=== PATIENT | male | born 2000 | race American Indian/Alaskan Native ===

== ENCOUNTER 2020-10-17 18:47 | Emergency (ER) | payer MEDICAID | END 2020-10-17 21:22 | disposition left against medical advice (07) | LOC: ED 18:47 | DX: Z00.8 Encounter for other general examination (principal); Z53.21 Procedure and treatment not carried out due to patient leaving prior to being seen by health care provider ==

== ENCOUNTER 2020-12-28 09:46 | Emergency (ER) | payer MEDICAID ==
[2020-12-28 10:14] VITALS: BP 120/79
--- NOTE | 2020-12-28 12:03 | Emergency Department Report ---
Chief Complaint: Urogenital-Male Stated Complaint: PAINFUL URINATION Time Seen by Provider: 12/28/20 12:01 - HPI History of Present Illness: Patient is a 20-year-old male presents emergency room complaints of dysuria that began a couple days ago. Patient states that he typically uses protection during his sexual encounters. States that this time he did not use protection. He began feeling the symptoms a few days after the encounter. He denies any penile discharge, hematuria, pain or swelling the testicles, abdominal pain, back pain, urinary retention, fever, nausea, vomiting, diarrhea. Patient denies any past medical history. No allergies to medications. Vitals are normal On exam: Non toxic appearing, no acute distress atraumatic, normocephalic normal appearance of the eyes, EOMI, no periorbital edema or ecchymosis moist mucus membranes No respiratory distress, no accessory muscle use A&O x4, normal gait Patient is presenting with signs likely consistent with STD given that he is having dysuria after a unprotected sexual encounter Patient denies any penile discharge, hematuria, pain or swelling the testicles, abdominal pain, back pain, urinary retention, fever, nausea, vomiting, diarrhea This hospital facility does not test or treat for uncomplicated male STDs Patient given the appropriate resources Discuss strict return precautions Medical screen examination performed and there is no threat to life or limb at this time - Exam Vital Signs: Vital Signs 12/28/20 10:13 Temperature 98.6 F Pulse Rate 81 Respiratory 14 Rate Blood Pressure 120/79 [Left] O2 Sat by Pulse 99 Oximetry MSE screening note: Focused history and physical exam performed. ED Disposition for MSE Clinical Impression: Dysuria, Concern about STD in male without diagnosis Disposition: 01 HOME / SELF CARE / HOMELESS Is pt being admited?: No Does the pt Need Aspirin: No Condition: Stable Instructions: Safe Sex Additional Instructions: please follow up with health department or clinic for full STD panel. have any partner tested and treated as well. avoid sexual intercourse. return to the emergency room for any new or worsening symptoms. [facility] Address: [address] [place] [id number] Referrals: [facility] Dep[facility] [Outside] - 2-3 Days Time of Disposition: 12:01 Print Language: SCOTTISH
== END 2020-12-28 12:04 | disposition home or self-care (01) ==
LOC: ED 09:46
DX: R30.0 Dysuria (principal); Z20.2 Contact with and (suspected) exposure to infections with a predominantly sexual mode of transmission
CPT/HCPCS: 99281